=== PATIENT | male | born 1985 | race Caucasian/White ===

== ENCOUNTER 2023-06-25 03:31 | Emergency (ER) | payer MEDICAID ==
[~2023-06-25] VITALS: Ht 177.8 cm; Wt 7.0 kg
[~2023-06-25 03:31] MED LIST: ZOF4T PO
[2023-06-25 03:44] VITALS: BP 124/87; PULSE 104; RESP 18; TEMP 97.5; O2SAT 100
--- NOTE | 2023-06-25 06:48 | NUR ---
not in lobby.
--- NOTE | 2023-06-25 07:05 | NUR ---
not in lobby.
--- NOTE | 2023-06-25 07:30 | NUR ---
not in lobby.
== END 2023-06-25 07:52 | disposition left against medical advice (07) ==
LOC: ER 03:31
DX: M79.641 Pain in right hand (principal); R22.31 Localized swelling, mass and lump, right upper limb; Z53.21 Procedure and treatment not carried out due to patient leaving prior to being seen by health care provider
CPT/HCPCS: 73130; 99281

== ENCOUNTER 2023-07-17 22:18 | Emergency (ER) | payer MEDICAID ==
[~2023-07-17] VITALS: Ht 177.8 cm; Wt 72.7 kg
[2023-07-17 22:37] VITALS: BP 123/88; PULSE 105; RESP 16; TEMP 98.6; O2SAT 98
[2023-07-17] MEDS ORDERED: ketorolac trometh inj. 60 MG/2 ML VIAL IM ONE (23:20)
[2023-07-17] MEDS ORDERED: acetaminophen 325mg tablet PO ONE (23:20)
[2023-07-17] MEDS ORDERED: ACET-1025 PO (23:23)
[2023-07-17] MEDS ORDERED: KETO10TA2 PO (23:23)
[2023-07-17] MEDS ORDERED: SULF1TAB49 PO (23:24)
[2023-07-17] MEDS ORDERED: bacitracin 15gm ointment TP ONE (23:25)
[2023-07-17] MEDS ORDERED: sulfamethoxazole/trimethoprim DS (800/160mg) tablet PO ONE (23:25)
--- NOTE | 2023-07-17 23:56 | NUR ---
WOUND CARE PROVIDED AND SPLINT PLACED
== END 2023-07-18 | disposition home or self-care (01) ==
LOC: ER 22:18
DX: S62.316A Displaced fracture of base of fifth metacarpal bone, right hand, initial encounter for closed fracture (principal); F12.10 Cannabis abuse, uncomplicated; X58.XXXA Exposure to other specified factors, initial encounter; Y93.89 Activity, other specified; Y92.89 Other specified places as the place of occurrence of the external cause; Y99.8 Other external cause status
CPT/HCPCS: 29125; 73130; 96372; 99284; J1885; 99283; A6258; A6449